=== PATIENT | male | born 1960 | race African-American/Black ===

== ENCOUNTER 2017-08-20 11:14 | Emergency (ER) | payer SELFPAY ==
[~2017-08-20] VITALS: Ht 175.3 cm; Wt 95.0 kg
[2017-08-20] MEDS ORDERED: SODIUM CHLORIDE 0.9% 1,000 ML IV ONE (11:24)
[2017-08-20] MEDS ORDERED: ZIPRASIDONE MESYLATE 20MG/VIAL IM ONE (11:30)
[2017-08-20] MEDS ORDERED: LORAZEPAM 2MG/ML CPJ IM ONE (11:30)
[2017-08-20 11:54] LABS: BG BASE EXCESS -0.4 mmol/L (-2.0-2.0); BG CARBOXYHEMOGLOBIN 1.2 % (0.5-1.5); BG DEOXYHEMOGLOBIN 8.6 % (0.0-5.0); BG FRACTION INSPIRED OXYGEN 21; BG HCO3 ACT 25.8 mmol/L (22.0-26.0); BG METHEMOGLOBIN 0.8 % (0.0-1.5); BG OXYGEN SATURATION 91.2 % (92.0-98.5); BG OXYHEMOGLOBIN 89.4 % (94.0-97.0); BG PCO2 47.9 mmHg (35.0-45.0); BG PH 7.349 (7.350-7.450); BG PO2 67.1 mmHg (75.0-100.0); BG SAMPLE SITE RIGHT RADIAL; BG TOTAL HEMOGLOBIN 14.7 g/dL (12.0-18.0); BG VENT MODE ROOM AIR
[2017-08-20 12:07] LABS: BASOPHILS % 0.9 % (0.0-2.0); EOSINOPHILS % 0.8 % (0.0-5.0); HEMOGLOBIN. 13.7 g/dL (14.0-18.0); LYMPHOCYTES % 23.3 % (20.0-50.0); MEAN CORPUSCULAR HEMOGLOBIN 32.1 pg (28.0-32.0); MEAN CORPUSCULAR VOLUME 96.6 fL (80.0-94.0); MEAN PLATELET VOLUME 7.3 fl (7.4-10.4); MONOCYTES % 6.1 % (2.0-8.0); NEUTROPHILS % 68.9 % (40.0-76.0); PLATELET 281 x1000/uL (130-400); RED BLOOD CELL COUNT 4.25 mill/uL (4.7-6.1); RED CELL DISTRIBUTION WIDTH 13.2 % (11.6-14.6)
[2017-08-20 12:09] LABS: INR 1.1; PROTHROMBIN TIME 11.4 sec (9.4-11.6)
[2017-08-20 12:13] LABS: AMMONIA < 25 uMol/L (<32); CHLORIDE 103 mEq/L (98-107); ETHANOL BLOOD 23 mg/dL
[2017-08-20 12:18] LABS: CREATINE KINASE 575 IU/L (39-308); TROPONIN I < 0.02 ng/mL (0.00-0.04)
[2017-08-20 12:32] LABS: CLARITY URINE CLEAR (CLEAR); COLOR URINE YELLOW (YELLOW); KETONES URINE NEGATIVE (NEGATIVE); LEUKOCYTE ESTERASE URINE NEGATIVE (NEGATIVE); NITRITE URINE NEGATIVE (NEGATIVE); OCCULT BLOOD URINE NEGATIVE (NEGATIVE); PROTEIN URINE NEGATIVE (NEGATIVE); UROBILINOGEN URINE 0.2 E.U./dL (0.2-1.0)
[2017-08-20] MEDS ORDERED: DEXTROSE 50% WATER 50ML SYRINGE IV ONE ×2 (13:00→15:00)
[2017-08-20 13:02] LABS: *AMPHETAMINES SCREEN URINE NEGATIVE (NEGATIVE); *BARBITURATES SCREEN URINE NEGATIVE (NEGATIVE); *BENZODIAZEPINES SCREEN URINE PRESUMTIVE POSITIVE (NEGATIVE); *COCAINE SCREEN URINE PRESUMTIVE POSITIVE (NEGATIVE); CANNABINOID URINE SCREEN NEGATIVE (NEGATIVE); METHADONE URINE SCREEN NEGATIVE (NEGATIVE); OPIATES URINE SCREEN NEGATIVE (NEGATIVE); PHENCYCLIDINE URINE SCREEN PRESUMTIVE POSITIVE (NEGATIVE)
[2017-08-20] MEDS ORDERED: DEXT 10% WATER 1,000 ML IV ONE (14:57)
[2017-08-20 18:35] VITALS: BP 147/90
== END 2017-08-20 19:21 | disposition home or self-care (01) ==
LOC: ER 11:28
DX: T50.991A Poisoning by other drugs, medicaments and biological substances, accidental (unintentional), initial encounter (principal); G93.40 Encephalopathy, unspecified; F31.9 Bipolar disorder, unspecified; E16.2 Hypoglycemia, unspecified; Y92.89 Other specified places as the place of occurrence of the external cause; Z88.0 Allergy status to penicillin; Z88.6 Allergy status to analgesic agent
CPT/HCPCS: 36415; 36600; 70450; 71045; 80053; 80305; 81003; 82140; 82375; 82550; 82805; 82962; 83605; 83690; 83880; 84443; 84484; 85025; 85610; 85730; 87040; 93005; 96361; 96372; 96374; 96376; 99285; G0482; J2060; J3486; J7030; X7700; Z7610; A4315